=== PATIENT | female | born 1990 | race Caucasian/White ===

== ENCOUNTER 2017-09-30 12:39 | Outpatient (CLI) | payer OTHER ==
--- NOTE | 2017-09-30 14:56 | ULT ---
OBSTETRICAL ULTRASOUND: Date: 09-30-17 Comparison: None. History: 27-year-old female. The patient has a known twin gestation. The patient underwent a sonographic assessment in the ordering physician's office which demonstrated findings concerning for demise of one of the twin gestations and thus ultrasound was requested for confirmation. Technique: Multiplanar grayscale sonographic imaging of the pelvis was obtained. FINDINGS: Transabdominal imaging demonstrates a twin gestation. The gestational sac noted to the left of midlin e is labelled as Twin A and to the right of midline is labelled as Twin B. A single pole is noted within each gestational sac. The crown-rump length of Fetus A is 2.6 cm. No heart activity is noted with Twin A, consistent with demise of Twin A. Twin B demonstrates a heart rate of 150 beats/minute. Ladd-rump length of Twin A is 2.6 cm and gestational sac diameter for Twin A is 3.9 cm, which could correlate with a 9 week 2 day gestation. Twin B demonstrates an average age based on ultrasound of 13 weeks 1 day. BPD is 2 cm, correlating with a 13 week 1 day gestation. Head circumference is 8.1 cm correlating with a 13 week 3 day gestation. Abdominal circumference is 6.8 cm correlating with a 13 week 3 day gestation. Femur length is 1.1 cm correlating with a 13 weeks 2 day gestation. Estimated date of delivery for Twin B is 04-06-18. IMPRESSION: Twin gestation noted. As stated in the provided clinical history, there is evidence of demise o f Twin A. Twin B demonstrates a heart rate of 150 beats/minute and an average age based on ultr asound of 13 weeks 1 day. POS: [facility]
== END 2017-09-30 12:40 | disposition home or self-care (01) ==
LOC: ULT 12:39
PROVIDERS: ATTEND Family Medicine
DX: O36.4XX1 Maternal care for intrauterine death, fetus 1 (principal); N91.2 Amenorrhea, unspecified; Z3A.13 13 weeks gestation of pregnancy
CPT/HCPCS: 76805

== ENCOUNTER 2017-11-27 12:40 | Outpatient (CLI) | payer OTHER | END 2017-11-27 12:41 | disposition home or self-care (01) | LOC: BICULT 12:40 | PROVIDERS: ATTEND Family Medicine | DX: Z34.92 Encounter for supervision of normal pregnancy, unspecified, second trimester (principal); O32.1XX0 Maternal care for breech presentation, not applicable or unspecified; Z3A.20 20 weeks gestation of pregnancy | CPT/HCPCS: 76805 ==

== ENCOUNTER 2018-04-11 09:35 | Inpatient (IN) | payer OTHER ==
--- NOTE | 2018-04-16 00:02 | HP ---
HISTORY OF PRESENT ILLNESS: This is a 28-year-old white female at 40 weeks and 5 days who is b [facility] admitted for elective post-date induction. No complaints of any contractions. Cervix was finge rtip, thick and close several days prior. No complaints of rupture of membranes. No complaints of a ny contractions recently. PAST MEDICAL HISTORY: None. ALLERGIES: PENICILLIN. SURGERIES: History of fractured hand and T&A. FAMILY HISTORY: Maternal grandfather with heart disease and prostate cancer. SOCIAL HISTORY: She is , works for domestic services. Does not smoke, does not drink. REVIEW OF SYSTEMS: As above. PHYSICAL EXAMINATION: VITAL SIGNS: Stable, afebrile. HEENT: Clear. HEART: Clear. LUNGS: Clear. ABDOMEN: Soft, gravid. Cervix fingertip, thick, closed. EXTREMITIES: No edema. LABORATORY AND X-RAY FINDINGS: GBS negative, 3-hour GTT negative, HIV negative. Pap normal. GC chl amydia negative. Thyroid normal. Hepatitis B negative. HIV negative, B positive blood type, rubell a immune, RPR negative. Urine culture negative. ASSESSMENT: 1. A 40 and 5 intrauterine . 2. History of during this of a twin with a vanishing twin. PLAN: 1. Routine admit to L&D. 2. Cytotec/Pitocin induction. 3. Routine anesthesia consult.
[2018-04-17] MEDS ORDERED: NS / Oxytocin 40 units/1000ml 1,000 ML IV PRN (05:55)
[2018-04-17] MEDS ORDERED: Acetaminophen 500 MG TAB PO PRN (05:55)
[2018-04-17] MEDS ORDERED: Ondansetron HCl/PF 4 MG/2 ML Vial IVP PRN ×2 (05:55→15:29)
[2018-04-17] MEDS ORDERED: Butorphanol Tartrate 1 MG/ML VIAL SLOW IVP PRN (05:55)
[2018-04-17] MEDS ORDERED: NS w/ Oxytocin 10 units 500 ML IV SCH (05:55)
[2018-04-17] MEDS ORDERED: Lidocaine 1% (PF) 30 ML VIAL SC PRN (05:55)
[2018-04-17] MEDS ORDERED: HYDROcodone/Acetaminophen 5/325 mg Tablet PO PRN (05:55)
[2018-04-17] MEDS ORDERED: Misoprostol 200 MCG TAB PR PRN (05:55)
[2018-04-17] MEDS ORDERED: Ibuprofen 800 MG TAB PO PRN (05:55)
[2018-04-17] MEDS ORDERED: Promethazine HCl 25 MG/ML VIAL IM PRN ×2 (05:55→15:29)
[2018-04-17 06:01] VITALS: BMI 30.8
[2018-04-17 06:15] LABS: Hemoglobin 11.8 g/dL (12.0-16.0); Mean Corpuscular HGB CONC 33.9 g/dL (32.0-36.0); Mean Corpuscular Hemoglobin 32.8 pg (27.0-31.0); Mean Corpuscular Volume 96.9 fL (78.0-98.0); Mean Platelet Volume 5.9 fL (7.4-10.4); Platelet Count 311 thou/uL (130-400); RBC Distribution Width 11.6 % (11.5-14.5); Red Blood Cell (RBC) Count 3.59 mill/uL (4.20-5.40); White Blood Cell (WBC) Count 9.2 thou/uL (4.8-10.8)
[2018-04-17] MEDS: Lactated Ringer's 1,000 ML IV SCH ×3 (06:32→15:01)
[2018-04-17] MEDS: Misoprostol 100 MCG TAB VAG SCH ×5 (06:35→21:57)
[2018-04-17 06:59] LABS: HBSAg Index 0.15 S/CO (0-0.99); Hep B Surf Ag Non-Reactive S/CO (NonReactive); Syphilis Antibody Nonreactive (Nonreactive); Syphilis Antibody Index 0.03 S/CO (<1.00 Non-Reactive)
[2018-04-17] MEDS ORDERED: DISCONTINUE ALL PREVIOUS NARCOTICS FS SCH (14:30)
[2018-04-17] MEDS ORDERED: Bupivacaine 0.75% 13.4 ML, fentaNYL Citrate/PF 400 MCG in Sodium Chloride 0.9% 78.6 ML EPIDURAL SCH (14:30)
[2018-04-17] MEDS ORDERED: Lactated Ringer's 500 ML IV PRN (15:29)
[2018-04-17] MEDS ORDERED: Acetaminophen 325 MG TAB PO PRN (15:29)
[2018-04-17] MEDS ORDERED: ePHEDrine/0.9% NaCl/PF SYRINGE 50 mg/10 ml SLOW IVP PRN (15:29)
[2018-04-17] MEDS ORDERED: diphenhydrAMINE 50 MG/ML VIAL IVP PRN (15:29)
[2018-04-17] MEDS ORDERED: Naloxone HCl 0.4 mg/ml Vial IVP PRN ×2 (15:29)
[2018-04-17] MEDS ORDERED: Eucerin (Mineral Oil/Petrolatum,White) 30 gm Jar TOP PRN (15:29)
[2018-04-17] MEDS ORDERED: Communication Order-Pharmacy FS SCH (15:30)
[2018-04-17] MEDS ORDERED: fentaNYL Citrate/PF 400 MCG, Bupivacaine 0.5% 20 ML in Sodium Chloride 0.9% 72 ML EPIDURAL SCH (15:30)
[2018-04-17] MEDS ORDERED: Lanolin Ointment 7 GM TUBE TOP PRN (21:40)
[2018-04-17] MEDS ORDERED: Benzocaine/Menthol 20-0.5% 60 ML CAN TOP PRN (21:40)
[2018-04-17] MEDS ORDERED: NS / Oxytocin 40 units/1000ml 1,000 ML IV SCH (21:40)
[2018-04-17] MEDS ORDERED: Milk Of Magnesia 30 ML UDCUP PO PRN (21:40)
[2018-04-17] MEDS ORDERED: Bisacodyl 10 MG SUPP PR PRN (21:40)
[2018-04-17] MEDS ORDERED: Methylergonovine 0.2 MG/ML VIAL IM PRN (21:40)
[2018-04-17] MEDS ORDERED: Docusate Calcium (SURFAK) 240 MG CAP PO SCH (22:00)
[2018-04-17] MEDS: Ibuprofen 800 MG TAB PO SCH (22:17)
--- NOTE | 2018-04-18 02:03 | OP ---
PREOPERATIVE DIAGNOSIS: Postdates 41-week intrauterine . POSTOPERATIVE DIAGNOSIS: Postdates 41-week intrauterine . PROCEDURE PERFORMED: Spontaneous vaginal delivery with repair of bilateral vaginal wall episiotomy a nd a right anterior 3-cm vaginal wall laceration. SURGEON: David Aguilar MD ANESTHESIA: Epidural. ESTIMATED BLOOD LOSS: 367 mL. DESCRIPTION OF PROCEDURE: This 28-year-old white female taken to the delivery room complete and push ing. Prepped and draped sterilely. Delivered a baby girl with Apgars 8 at 1 minute and 9 at 5 minut es. Baby did breathe and cry vigorously upon delivery. The patient had a bilateral episiotomy tear d own the 4 o'clock region and the 8 o'clock region. This required two episiotomy repairs; however, th e vaginal styles came together nicely. One 3-cm right labial tear was repaired with 1 interrupted 3-0 chromic stitch. Rectum was intact. EBL was 367 mL. Mother and baby did very well.
[2018-04-18] MEDS: Ibuprofen 800 MG TAB PO SCH ×3 (05:41→22:07)
[2018-04-18 06:22] LABS: Hemoglobin 10.1 g/dL (12.0-16.0); Mean Corpuscular HGB CONC 35.1 g/dL (32.0-36.0); Mean Corpuscular Hemoglobin 34.6 pg (27.0-31.0); Mean Corpuscular Volume 98.8 fL (78.0-98.0); Platelet Count 238 thou/uL (130-400); RBC Distribution Width 11.6 % (11.5-14.5); Red Blood Cell (RBC) Count 2.92 mill/uL (4.20-5.40); White Blood Cell (WBC) Count 10.8 thou/uL (4.8-10.8)
[2018-04-18] MEDS: Ferrous Sulfate 325 MG TAB PO SCH ×2 (08:54→16:55)
[2018-04-18] MEDS ORDERED: Adacel (T-DAP) 0.5 ML VIAL IM ONE (09:00)
[2018-04-18] MEDS: Docusate Calcium (SURFAK) 240 MG CAP PO SCH ×2 (09:04→21:21)
[2018-04-18] MEDS: Prenatal Vitamin 1 TAB PO SCH (09:04)
[2018-04-18] MEDS ORDERED: Acetaminophen 325 MG TAB PO PRN (09:45)
[2018-04-18] MEDS ORDERED: Bupivacaine 0.25% HCL 30 ML VIAL ONE (11:11)
[2018-04-18] MEDS: HYDROcodone/Acetaminophen 5/325 mg Tablet PO PRN ×2 (15:17→21:22)
[2018-04-19] MEDS: Ibuprofen 800 MG TAB PO SCH (06:05)
[2018-04-19] MEDS: Docusate Calcium (SURFAK) 240 MG CAP PO SCH (08:12)
[2018-04-19] MEDS: Prenatal Vitamin 1 TAB PO SCH (08:13)
[2018-04-19] MEDS: HYDROcodone/Acetaminophen 5/325 mg Tablet PO PRN ×2 (08:13→11:46)
[2018-04-19 10:05] VITALS: TEMP 98.3
[2018-04-19 10:07] VITALS: BP 120/70
[2018-04-19] MEDS: Ferrous Sulfate 325 MG TAB PO SCH (10:08)
== END 2018-04-19 12:08 | disposition home or self-care (01) | DRG 775 ==
LOC: L&D 04-17 05:22 → 3SW 04-17 21:39
PROVIDERS: ADMIT Family Medicine; ATTEND Family Medicine
PROC: 10E0XZZ Delivery of Products of Conception, External Approach (ICD-10-PCS; principal; 2018-04-18)
PROC: 3E033VJ Introduction of Other Hormone into Peripheral Vein, Percutaneous Approach (ICD-10-PCS; 2018-04-18)
PROC: 3E0P7VZ Introduction of Hormone into Female Reproductive, Via Natural or Artificial Opening (ICD-10-PCS; 2018-04-18)
PROC: 0W8NXZZ Division of Female Perineum, External Approach (ICD-10-PCS; 2018-04-18)
PROC: 0UQGXZZ Repair Vagina, External Approach (ICD-10-PCS; 2018-04-18)
DX: O48.0 Post-term pregnancy (principal); O71.4 Obstetric high vaginal laceration alone; Z37.0 Single live birth; Z88.0 Allergy status to penicillin; Z3A.40 40 weeks gestation of pregnancy
CPT/HCPCS: 36415; 85027; 86780; 86850; 86900; 86901; 87340; J3010; J7050; S0020